=== PATIENT | male | born 1985 | race Caucasian/White ===

== ENCOUNTER → 2021-01-29 | Outpatient (CLI) | payer BC ==
[~2021-01-29] MED LIST: BETA ALANINE PO; CHOL10003 PO; ESCI5TAB7 PO; ICOS1CAP PO; MAGN400C PO; MULT-449 PO; TRAZ-175 PO; VITA1CAP PO; ZINC220T2 PO
== END | disposition home or self-care (01) ==
LOC: STAR 08:03
PROVIDERS: ATTEND Orthopaedic Surgery Hand Surgery
DX: Z01.812 Encounter for preprocedural laboratory examination (principal); Z20.822 Contact with and (suspected) exposure to COVID-19; G56.01 Carpal tunnel syndrome, right upper limb
CPT/HCPCS: 36415; 87635

== ENCOUNTER 2021-02-03 05:54 | Day surgery (SDC) | payer BC ==
[~2021-02-03] VITALS: Ht 175.3 cm; Wt 76.0 kg
[2021-02-03 06:35] VITALS: BP 114/63
== END 2021-02-03 09:05 | disposition home or self-care (01) ==
LOC: OUT 05:54
PROVIDERS: ATTEND Orthopaedic Surgery Hand Surgery
DX: G56.03 Carpal tunnel syndrome, bilateral upper limbs (principal); G56.23 Lesion of ulnar nerve, bilateral upper limbs; F41.8 Other specified anxiety disorders; Z79.899 Other long term (current) drug therapy; Z82.49 Family history of ischemic heart disease and other diseases of the circulatory system
CPT/HCPCS: 29848; J0171; J2250; J7120